=== PATIENT | male | born 2000 ===

== ENCOUNTER 2020-05-13 16:40 | Emergency (ER) | payer OTHER ==
[~2020-05-13] VITALS: Ht 182.9 cm; Wt 78.5 kg
[2020-05-13] MEDS ORDERED: DICLOFENAC SODI75 MG PO (17:17)
== END 2020-05-13 17:24 | disposition home or self-care (01) ==
LOC: ER 16:40
DX: S93.492A Sprain of other ligament of left ankle, initial encounter (principal); M12.572 Traumatic arthropathy, left ankle and foot; W01.198A Fall on same level from slipping, tripping and stumbling with subsequent striking against other object, initial encounter; Y93.89 Activity, other specified; Y92.89 Other specified places as the place of occurrence of the external cause; Y99.8 Other external cause status

== ENCOUNTER 2021-09-11 08:13 | Outpatient (CLI) | payer OTHER ==
[~2021-09-11 08:13] MED LIST: DICLOFENAC SODI75 MG PO
== END 2021-09-11 08:26 | disposition home or self-care (01) ==
LOC: TOM 08:13
DX: R10.84 Generalized abdominal pain (principal)